=== PATIENT | male | born 1950 | race Caucasian/White ===

== ENCOUNTER 2022-07-19 06:46 | Emergency (ER) | payer OTHER ==
[~2022-07-19] VITALS: Ht 180.3 cm; Wt 100.0 kg
[2022-07-19 07:30] LABS: ABG A-A DIFF O2 513.2 mmHg (10-20.0); ABG BASE EXCESS -13.3 mmol/L (-2.0-3.0); ABG CARBOXYHEMOGLOBIN 0.5 % (0.0-1.5); ABG HCO3 15.9 mmol/L (22.0-26.0); ABG METHEMOGLOBIN 0.1 % (0.0-1.5); ABG OXYGEN SATURATION 98.8 % (95.0-98.0); ABG OXYHEMOGLOBIN 98.2 % (94.0-100.0); ABG PCO2 25 mmHg (35-45); O2 DEVICE,BLOOD GAS NON REBREATHER (ROOM AIR); PO2, ARTERIAL BG 175.2 mmHg (75.0-83.0); SITE, BLOOD GAS RT RADIAL; SOURCE, BLOOD GAS ARTERIAL; TEMPERATURE, FAHRENHEIT, BG 98.6 FAHREN (96.0-98.6)
[2022-07-19 08:00] LABS: BASOPHILS % (AUTO) 0.4 % (0.0-2.0); EOSINOPHILS % (AUTO) 0.5 % (1.0-6.0); HEMATOCRIT 45.9 % (41-53); HEMOGLOBIN 14.9 g/dL (13.5-17.5); LYMPHOCYTES # (AUTO) 3.9 K/uL (1.0-4.8); LYMPHOCYTES % (AUTO) 22.4 % (22.0-44.0); MEAN CORPUSCULAR HEMOGLOBIN 27.6 pg (26.0-34.0); MEAN CORPUSCULAR HGB CONC 32.4 G/dL (31.0-37.0); MEAN CORPUSCULAR VOLUME 85 fL (80-100); MONOCYTES # (AUTO) 0.7 K/uL (0.1-1.0); MONOCYTES % (AUTO) 4.2 % (2.0-9.0); NEUTROPHILS # (AUTO) 12.6 K/uL (1.8-7.7); NEUTROPHILS % (AUTO) 72.5 % (40.0-70.0); PLATELET COUNT (AUTO) 193 K/uL (150-450); RED BLOOD CELL COUNT(AUTO) 5.39 MIL/uL (4.50-5.90); RED CELL DISTRIBUTION WIDTH 14.9 % (11.5-14.5)
[2022-07-19] MEDS ORDERED: OXYGEN THERAPY IH SCH (08:00)
[2022-07-19 08:05] LABS: GLUCOSE,POINT OF CARE 342 MG/DL (70-110)
[2022-07-19 08:09] LABS: B-TYPE NATRIURETIC PEPTIDE 78 pg/mL (0-100)
[2022-07-19 08:13] LABS: AMMONIA < 10 umol/L (11-32)
[2022-07-19 08:16] LABS: LACTIC ACID 8.8 mmol/L (0.4-2.0)
[2022-07-19 08:25] LABS: ACETONE,BLOOD NEGATIVE (NEGATIVE)
[2022-07-19 08:28] LABS: COVID AG,FIA SOURCE NASOPHARYNGEAL
[2022-07-19 08:28] LABS: ALANINE AMINOTRANSFERASE 75 U/L (12-78); ALBUMIN 3.1 g/dL (3.4-5.0); ALKALINE PHOSPHATASE 130 U/L (46-116); ANION GAP 16 mmol/L (8-16); ASPARTATE AMINOTRANSFERASE 133 U/L (15-37); CALCIUM, TOTAL 9.6 mg/dL (8.8-10.5); CARBON DIOXIDE 21 mmol/L (22-29); CHLORIDE 98 mmol/L (98-107); CREATININE 1.88 mg/dL (0.60-1.30); GLOMERULAR FILTR. RATE CALC 35 mL/min (>60); GLUCOSE,RANDOM 603 mg/dL (70-110); LIPASE 138 U/L (73-393); SODIUM SERUM 135 mmol/L (136-145); TOTAL PROTEIN, SERUM 6.5 g/dL (6.4-8.2); UREA NITROGEN, BLOOD 28 mg/dL (7-18)
[2022-07-19] MEDS ORDERED: ASPIRIN 325 MG TABLET PO ONE (08:30)
[2022-07-19] MEDS ORDERED: INSULIN REGULAR, HUMAN 100 UNITS/ML IVP ONE (08:30)
[2022-07-19] MEDS ORDERED: SODIUM CHLORIDE 0.9% 1,000 ML IV ONE ×4 (08:30→11:15)
[2022-07-19 08:57] LABS: INFLUENZA TYPE A NEGATIVE FOR TYPE A (NEGATIVE); INFLUENZA TYPE B NEGATIVE FOR TYPE B (NEGATIVE)
[2022-07-19 10:56] VITALS: BP 128/80
[2022-07-19] MEDS ORDERED: ONDANSETRON HCL 4 MG/2 ML VIAL IVP PRN (11:00)
[2022-07-19] MEDS ORDERED: CARVEDILOL 6.25 MG TABLET PO SCH (11:00)
[2022-07-19] MEDS ORDERED: ATORVASTATIN CALCIUM 40 MG TABLET PO ONE (11:00)
[2022-07-19] MEDS ORDERED: INSULIN LISPRO 100 UNITS/ML SQ PRN (11:00)
[2022-07-19] MEDS ORDERED: MORPHINE SULFATE 2 MG/ML SYRINGE IVP PRN (11:00)
[2022-07-19] MEDS ORDERED: ATORVASTATIN CALCIUM 40 MG TABLET PO SCH (11:00)
[2022-07-19] MEDS ORDERED: ALBUTEROL SULFATE 2.5 MG/0.5 ML NEB SOLUTION NEB PRN (11:00)
[2022-07-19] MEDS ORDERED: ACETAMINOPHEN 325 MG TABLET PO PRN (11:00)
[2022-07-19] MEDS ORDERED: DEXTROSE 50%-WATER 25 GM/50 ML SYRINGE IVP PRN (11:00)
[2022-07-19] MEDS ORDERED: METOPROLOL SUCCINATE 25 MG ER TABLET PO ONE (11:00)
[2022-07-19 11:36] LABS: ABG BASE EXCESS -15.4 mmol/L (-2.0-3.0); ABG CARBOXYHEMOGLOBIN 0.5 % (0.0-1.5); ABG HCO3 12.5 mmol/L (22.0-26.0); ABG METHEMOGLOBIN 0.3 % (0.0-1.5); ABG OXYGEN CONTENT 12.6 mL/dL (15.0-23.0); ABG OXYHEMOGLOBIN 80.8 % (94.0-100.0); ABG PCO2 59 mmHg (35-45); PO2, ARTERIAL BG 63.8 mmHg (75.0-83.0); SOURCE, BLOOD GAS ARTERIAL; TEMPERATURE, FAHRENHEIT, BG 98.6 FAHREN (96.0-98.6)
[2022-07-19] MEDS ORDERED: HEPARIN SODIUM,PORCINE 5,000 UNITS/ML VIAL SQ SCH (16:00)
[2022-07-19 17:54] LABS: ABG OXYGEN SATURATION 81.5 % (95.0-98.0); ABG PH 7.032 (7.35-7.450); O2 DEVICE,BLOOD GAS BAG VALVE MASK (ROOM AIR); SITE, BLOOD GAS RT FEMORAL
[2022-07-19] MEDS ORDERED: DOCUSATE SODIUM 100 MG CAPSULE PO SCH (21:00)
[2022-07-19] MEDS ORDERED: INSULIN GLARGINE,HUM.REC.ANLOG 100 UNITS/ML SQ SCH (21:00)
[2022-07-20] MEDS ORDERED: PANTOPRAZOLE SODIUM 40 MG DR TABLET PO SCH (09:00)
[2022-07-20] MEDS ORDERED: ASPIRIN 81 MG CHEWABLE TABLET PO SCH (09:00)
== END 2022-07-19 16:53 ==
LOC: EMS 06:46
DX: I46.9 Cardiac arrest, cause unspecified (principal); E11.65 Type 2 diabetes mellitus with hyperglycemia; N17.9 Acute kidney failure, unspecified; E86.0 Dehydration; I26.99 Other pulmonary embolism without acute cor pulmonale; I21.4 Non-ST elevation (NSTEMI) myocardial infarction; I10 Essential (primary) hypertension; Z79.899 Other long term (current) drug therapy; Z88.0 Allergy status to penicillin; Z88.1 Allergy status to other antibiotic agents; Z20.822 Contact with and (suspected) exposure to COVID-19
CPT/HCPCS: 36556; 80053; 82009; 82140; 82962; 83036; 83605; 83690; 83735; 83880; 84484; 85025; 85379; 87040; 87804; 82805; 92950; 36600; 71045; 99292; 93005; 96361; 96374; 31500; 99291; 87426; 36415; G0480; J7030; J1815